=== PATIENT | male | born 1970 | race Hispanic/Latino ===

== ENCOUNTER → 2025-02-04 | Day surgery (SDC) | payer OTHER ==
[~2025-02-04] MED LIST: LIDOCAINE HCL 2% LOCAL INJ 5 ML SDV VIAL INJ ONE; PROPOFOL IV EMULSION 50 ML IV ONE
[2025-02-04] MEDS: LACTATED RINGER'S 1,000 ML ONE (08:20)
[2025-02-04 11:00] VITALS: BP 138/90; PULSE 71; RESP 16; O2SAT 98
== END | disposition home or self-care (01) ==
LOC: OR 07:49
PROVIDERS: ATTEND Internal Medicine Gastroenterology
DX: Z12.11 Encounter for screening for malignant neoplasm of colon (principal); K63.5 Polyp of colon; K57.30 Diverticulosis of large intestine without perforation or abscess without bleeding; K64.8 Other hemorrhoids; Z71.3 Dietary counseling and surveillance; Z71.89 Other specified counseling; R03.0 Elevated blood-pressure reading, without diagnosis of hypertension; E78.5 Hyperlipidemia, unspecified; E66.01 Morbid (severe) obesity due to excess calories; Z01.810 Encounter for preprocedural cardiovascular examination
CPT/HCPCS: 45385; 93005; J2003; J2704; J7121; 45378